=== PATIENT | female | born 1985 | race Two or more races ===

== ENCOUNTER 2020-03-02 07:30 | Inpatient (IN) | payer OTHER ==
[2020-03-02] MEDS ORDERED: ELECTROLYTE-148 SOLN 500 ML IV SCH ×2 (08:20→09:15)
[2020-03-02] MEDS ORDERED: BUTORPHANOL TARTRATE 2 MG/ML VIAL ONE ×2 (09:10→11:53)
[2020-03-02] MEDS ORDERED: PROMETHAZINE HCL 25 MG/1 ML VIAL ONE ×2 (09:10→11:54)
[2020-03-02] MEDS ORDERED: PROMETHAZINE HCL 25 MG/1 ML VIAL IVPB ONE ×2 (09:13→11:45)
[2020-03-02] MEDS ORDERED: CITRIC ACID/SODIUM CITRATE 30 ML UNIT-DOSE CUP PO ONE (09:13)
[2020-03-02] MEDS ORDERED: AMPICILLIN - 2 GM in SODIUM CHLORIDE 100 ML IVPB ONE (09:18)
[2020-03-02 09:33] VITALS: BMI 34.1
[2020-03-02] MEDS: BUTORPHANOL TARTRATE 1 MG/ML VIAL IVPB PRN ×2 (10:36→12:20)
[2020-03-02] MEDS ORDERED: ELECTROLYTE-148 SOLN 1,000 ML IV SCH ×2 (11:15)
[2020-03-02] MEDS ORDERED: SODIUM CHLORIDE 100 ML IVPB ONE (11:21)
[2020-03-02] MEDS ORDERED: AMPICILLIN SODIUM 2 GM VIAL ONE (11:21)
[2020-03-02] MEDS ORDERED: morphine SULFATE/PF 0.5 MG/ML (2cc Syringe - QUVA) ONE (15:17)
[2020-03-02] MEDS ORDERED: ceFAZolin SODIUM 1 GM VIAL ONE (15:17)
[2020-03-02] MEDS ORDERED: OXYTOCIN 20 UNITS in 0.9% NS 20 UNIT/1,000 ML INFUS.BAG IV ONE ×2 (15:18→15:41)
[2020-03-02] MEDS ORDERED: PHENYLEPHRINE HCL 10 MG/1 ML SINGLE DOSE VIAL ONE (15:37)
[2020-03-02] MEDS ORDERED: EPINEPHrine 1:10,000 (P-F SYR) 1 MG/10 ML DISP.SYRIN ONE (15:37)
[2020-03-02] MEDS ORDERED: ePHEDrine SULFATE 50 MG/1 ML AMPULE ONE (15:37)
[2020-03-02] MEDS ORDERED: PROPOFOL 20 ML ONE (15:41)
[2020-03-02] MEDS ORDERED: SUCCINYLCHOLINE CHLORIDE 200 MG/10 ML SYRINGE ONE (15:41)
[2020-03-02] MEDS ORDERED: METHYLERGONOVINE MALEATE 0.2 MG/1 ML AMP IM PRN (15:59)
[2020-03-02] MEDS ORDERED: BENZOCAINE 20% 57 GM BOTTLE TP PRN (15:59)
[2020-03-02] MEDS ORDERED: IBUPROFEN 800 MG/8 ML IJ IVPB PRN (15:59)
[2020-03-02] MEDS ORDERED: IBUPROFEN 600 MG TABLET (FP) PO PRN (15:59)
[2020-03-02] MEDS ORDERED: diphenhydrAMINE HCL 25 MG CAPSULE (FP) PO PRN (15:59)
[2020-03-02] MEDS ORDERED: WITCH HAZEL 50% (TUCKS) 40 PAD/JAR PAD TP PRN (15:59)
[2020-03-02] MEDS ORDERED: BENZOCAINE 28 GM HEMORRHOIDAL OINTMENT PR PRN (15:59)
[2020-03-02] MEDS ORDERED: AMPICILLIN - 1 GM in SODIUM CHLORIDE 100 ML IVPB SCH (16:00)
[2020-03-02] MEDS ORDERED: OXYTOCIN 10 UNITS/ML VIAL ONE ×2 (16:07→16:19)
[2020-03-02] MEDS ORDERED: OXYTOCIN 20 UNITS in 0.9% NS 20 UNIT/1,000 ML INFUS.BAG IV SCH (16:15)
[2020-03-02] MEDS ORDERED: ONDANSETRON 4 MG/2 ML VIAL ONE (16:18)
[2020-03-02] MEDS ORDERED: KETOROLAC TROMETHAMINE 30 MG/1 ML VIAL ONE (16:18)
[2020-03-02] MEDS ORDERED: DEXAMETHASONE SOD PHOSPHATE 4 MG/1 ML VIAL ONE (16:18)
[2020-03-02 17:03] LABS: CORD BASE EXCESS -7.7 mmol/L (0-2); CORD HCO3 19.5 mmHg (20-29); CORD pH 7.246 (7.14-7.44)
[2020-03-02 17:09] LABS: CORD BASE EXCESS -7.8 mmol/L (0-2); CORD HCO3 20.2 mmHg (20-29); CORD pH 7.216 (7.14-7.44)
[2020-03-03] MEDS: ACETAMINOPHEN 325 MG TABLET (FP) PO PRN ×2 (09:01→18:29)
[2020-03-03 09:17] LABS: HEMATOCRIT 27.5 % (32.4-45.2); HEMOGLOBIN 9.1 GM/dL (10.7-15.3); MEAN CELL VOLUME 100.1 fl (80-96); PLATELET COUNT 173 K/MM3 (134-434); RBC 2.75 M/mm3 (3.60-5.2); RDW 12.7 % (11.6-15.6); WHITE BLOOD COUNT 12.8 K/mm3 (4.0-10.0)
[2020-03-03] MEDS ORDERED: DIPHTH,PERTUSS(ACELL),TET 0.5 ML DISP.SYRIN IM ONE (10:00)
[2020-03-03] MEDS ORDERED: HYDROmorphone HCL 2 MG TABLET PO PRN (15:59)
[2020-03-03] MEDS ORDERED: BISACODYL 10 MG SUPP.RECT PR PRN (15:59)
[2020-03-03] MEDS: SIMETHICONE 80 MG TAB.CHEW (FP) PO PRN (18:29)
[2020-03-03] MEDS: oxyCODONE HCL 5 MG TABLET PO PRN (18:30)
[2020-03-04] MEDS: ACETAMINOPHEN 325 MG TABLET (FP) PO PRN ×3 (00:37→15:45)
[2020-03-04] MEDS: oxyCODONE HCL 5 MG TABLET PO PRN ×4 (00:38→23:58)
[2020-03-04] MEDS: SIMETHICONE 80 MG TAB.CHEW (FP) PO PRN ×2 (08:51→15:45)
[2020-03-04] MEDS: FERROUS SO4 325 MG TABLET (FP) PO SCH ×2 (11:49→18:18)
[2020-03-04] MEDS ORDERED: SENNOSIDES/DOCUSATE COMBO (SENNA PLUS) TABLET (UD) PO PRN (22:00)
[2020-03-05] MEDS: SIMETHICONE 80 MG TAB.CHEW (FP) PO PRN (00:01)
[2020-03-05] MEDS: ACETAMINOPHEN 325 MG TABLET (FP) PO PRN ×2 (00:01→08:13)
[2020-03-05] MEDS: FERROUS SO4 325 MG TABLET (FP) PO SCH (08:13)
[2020-03-05] MEDS: oxyCODONE HCL 5 MG TABLET PO PRN (08:14)
[2020-03-05 08:30] VITALS: BP 107/56; PULSE 73; TEMP 97.8
[2020-03-05 10:49] LABS: HEMATOCRIT 30.6 % (32.4-45.2); HEMOGLOBIN 10.5 GM/dL (10.7-15.3); MCH 34.2 pg (25.7-33.7); MCHC 34.2 g/dl (32.0-36.0); MEAN CELL VOLUME 100.1 fl (80-96); MEAN PLT VOLUME 8.6 fl (7.5-11.1); PLATELET COUNT 204 K/MM3 (134-434); RBC 3.06 M/mm3 (3.60-5.2); RDW 13.1 % (11.6-15.6); WHITE BLOOD COUNT 7.4 K/mm3 (4.0-10.0)
== END 2020-03-05 14:45 | disposition home or self-care (01) | DRG 788 ==
LOC: JDEL 07:30 → JLDR 09:00 → J3W 17:50
PROVIDERS: ADMIT Obstetrics & Gynecology; ATTEND Obstetrics & Gynecology
PROC: 10D00Z1 Extraction of Products of Conception, Low, Open Approach (ICD-10-PCS; principal; 2020-03-02)
DX: O34.211 Maternal care for low transverse scar from previous cesarean delivery (principal); N85.8 Other specified noninflammatory disorders of uterus; O62.1 Secondary uterine inertia; O99.02 Anemia complicating childbirth; D64.9 Anemia, unspecified; Z3A.40 40 weeks gestation of pregnancy; Z37.0 Single live birth
CPT/HCPCS: 36415; 36600; 82803; 85027; 88307-TC; 90715